=== PATIENT | male | born 1940 | race Caucasian/White ===

== ENCOUNTER 2017-01-11 11:04 | Emergency (ER) | payer OTHER ==
[~2017-01-11] VITALS: Ht 165.1 cm; Wt 74.8 kg
[~2017-01-11 11:04] MED LIST: AMLO2.5T PO; ASPI81 PO; CLOP75 PO; SIMV20TA PO; VENTAER INH
[2017-01-11 11:28] VITALS: BP 167/89; PULSE 78; RESP 16; TEMP 97.9; O2SAT 97
[2017-01-11] MEDS ORDERED: AMLO2.5T PO (11:48)
[2017-01-11] MEDS ORDERED: ALEN1TAB48 PO (11:48)
[2017-01-11] MEDS ORDERED: SIMV20TA PO (11:48)
[2017-01-11] MEDS ORDERED: ASPI81CH37 CHEW (11:48)
[2017-01-11] MEDS ORDERED: PLAV75TA29 PO (11:48)
[2017-01-11] MEDS ORDERED: ZEGE20CA4 PO (11:48)
[2017-01-11] MEDS ORDERED: ONDANSETRON HCL 4 MG/2 ML VIAL IVP ONE (12:00)
[2017-01-11] MEDS ORDERED: LORazepam 2 MG/ML VIAL IV PUSH ONE (12:00)
[2017-01-11] MEDS ORDERED: SODIUM CHLORIDE 0.9% FLUSH 10 ML FLUSH IVF PRN (12:00)
--- NOTE | 2017-01-11 12:07 | PD ---
HPI Chief Complaint: Dizziness Time Seen by Provider: 11:37 Travel History International Travel<30 days: No Contact w/Intl Traveler<30days: No Traveled to known affect area: No History of Present Illness HPI Is a 76-year-old male who presents to the emergency department complaining of vertigo and dizziness vomiting and some visual changes. States symptoms started when he woke up yesterday morning. The been severe since. He describes severe vertigo symptoms, and visual changes that he describes as objects sort of fluttering or moving it as so you are flipping a, bulk or flipped bulk. Denies any scotoma, or overt blurry vision or other visual changes. He is also started getting severe tinnitus, as well as some pain in the back of the head, and some slight left ear pain that improved. He otherwise had been feeling generally well and healthy prior to this. His never had previous similar symptoms. His a history of hypertension as well as peripheral arterial disease with previous stenting in his legs, but no history of heart disease or cerebrovascular disease. History Past Medical History Narrative Medical Hypertension PAD Tetanus Vaccination: > 5 Years Influenza Vaccination: Yes PNEUMOCCOCAL Vaccine (Year): 2008 Social History Alcohol Use: No Tobacco Use: Yes (08/10 PPD) Allergies-Medications (Allergen,Severity, Reaction): Coded Allergies: Ibuprofen (Verified Allergy, Severe, Hives, 01/11/17) Reported Meds & Prescriptions Reported Meds & Active Scripts Active Reported Alendronate (Alendronate Sodium) 70 Mg Tab 70 Mg PO Q7D Aspirin Low Dose (Aspirin) 81 Mg Chew 81 Mg CHEW DAILY Zegerid (Omeprazole-Sodium Bicarbonate) 20-1,100 Mg Cap 1 Cap PO DAILY Simvastatin 20 Mg Tab 20 Mg PO DAILY Amlodipine (Amlodipine Besylate) 2.5 Mg Tab 2.5 Mg PO DAILY Plavix (Clopidogrel Bisulfate) 75 Mg Tab 75 Mg PO DAILY Review of Systems Except as stated in HPI: all other systems reviewed are Neg Physical Exam Narrative GENERAL: 76-year-old man, appears uncomfortable, intermittent vomiting, keeps his eyes closed. SKIN: Focused skin assessment warm/dry. HEAD: Atraumatic. Normocephalic. EYES: Pupils equal and round. No scleral icterus. No injection or drainage. ENT: No nasal bleeding or discharge. Mucous membranes pink and moist. NECK: Trachea midline. No JVD. CARDIOVASCULAR: Regular rate and rhythm. No murmur appreciated. RESPIRATORY: No accessory muscle use. Clear to auscultation. Breath sounds equal bilaterally. GASTROINTESTINAL: Abdomen soft, non-tender, nondistended. Hepatic and splenic margins not palpable. MUSCULOSKELETAL: No obvious deformities. No clubbing. No cyanosis. No edema. NEUROLOGICAL: Awake and alert. No obvious facial asymmetry. EOMs are full. Visual lyles are full. He does have some spontaneous nystagmus, mostly right beating. No vertical skewed deviation. Head impulse test appears fairly normal despite spontaneous nystagmus. Normal finger to nose. Normal heel-to- culver. Normal exam is otherwise grossly normal. Data Data Last Documented VS Vital Signs Date Time Temp Pulse Resp B/P Pulse Ox O2 Delivery O2 Flow Rate FiO2 01/11/17 12:50 66 16 174/91 99 Room Air 01/11/17 11:28 97.9 Orders Complete Blood Count With Diff (01/11/17 11:49) Comprehensive Metabolic Panel (01/11/17 11:49) Iv Access Insert/Monitor (01/11/17 11:49) Ondansetron Inj (Zofran Inj) (01/11/17 12:00) Sodium Chloride 0.9% Flush (Ns Flush) (01/11/17 12:00) Lorazepam Inj (Ativan Inj) (01/11/17 12:00) Mri Brain W/O Contrast (01/11/17 ) Labs Laboratory Tests Test 01/11/17 12:00 White Blood Count 9.1 TH/MM3 Red Blood Count 5.07 MIL/MM3 Hemoglobin 14.9 GM/DL Hematocrit 44.2 % Mean Corpuscular Volume 87.3 FL Mean Corpuscular Hemoglobin 29.4 PG Mean Corpuscular Hemoglobin 33.7 % Concent Red Cell Distribution Width 12.5 % Platelet Count 264 TH/MM3 Mean Platelet Volume 6.8 FL Neutrophils (%) (Auto) 66.7 % Lymphocytes (%) (Auto) 21.7 % Monocytes (%) (Auto) 10.2 % Eosinophils (%) (Auto) 1.0 % Basophils (%) (Auto) 0.4 % Neutrophils # (Auto) 6.1 TH/MM3 Lymphocytes # (Auto) 2.0 TH/MM3 Monocytes # (Auto) 0.9 TH/MM3 Eosinophils # (Auto) 0.1 TH/MM3 Basophils # (Auto) 0.0 TH/MM3 CBC Comment DIFF FINAL Differential Comment Sodium Level 141 MEQ/L Potassium Level 4.0 MEQ/L Chloride Level 106 MEQ/L Carbon Dioxide Level 27.5 MEQ/L Anion Gap 8 MEQ/L Blood Urea Nitrogen 20 MG/DL Creatinine 0.88 MG/DL Estimat Glomerular Filtration 85 ML/MIN Rate Random Glucose 107 MG/DL Calcium Level 9.7 MG/DL Total Bilirubin 0.5 MG/DL Aspartate Amino Transf 13 U/L (AST/SGOT) Alanine Aminotransferase 18 U/L (ALT/SGPT) Alkaline Phosphatase 71 U/L Total Protein 7.1 GM/DL Albumin 3.8 GM/DL [facility] Medical Decision Making Medical Screen Exam Complete: Yes Emergency Medical Condition: Yes Interpretation(s) LABS: CBC is unremarkable. CMP is unremarkable. MRI: No acute intracranial abnormality. Extensive chronic small vessel ischemic change with whole area degeneration involving the isabel. Differential Diagnosis Vestibular neuritis, acoustic neuritis, vestibular migraine, CVA, vertebrobasilar insufficiency, other Narrative Course medical decision making INITIAL: 76 old male with acute vestibular syndrome starting yesterday. Visual changes seem to be related to his spontaneous nystagmus. He has tinnitus as well that would suggest acoustic neuritis. He has a history of vascular disease , and has a normal headache impulse test suggesting central lesion. We'll check MRI of the brain to rule out stroke. Reassess. Diagnosis Primary Impression: Acoustic neuritis Additional Instructions: Take prednisone as prescribed. Take meclizine as needed for vertigo for the first 2-3 days only. Follow-up with her primary doctor in the next 2-4 days. Return to the emergency department for any new or worsening symptoms. Med/Other Pt SpecificInfo: Prescription(s) given Scripts Meclizine 25 Mg Tab25 Mg PO TID PRN (VERTIGO) #6 TAB Prov:Pramod Delgado MD 01/11/17 Prednisone 10 Mg Tab10 Mg PO DIRECTED #70 TAB 60 mg daily on days one through five, 40 mg on day six, 30 mg on day seven, 20 mg on day eight, 10 mg on day nine, and 5 mg on day 10. Prov:Pramod Delgado MD 01/11/17 Disposition: 01 DISCHARGE HOME Condition: Stable Pramod Delgado MD Jan 11, 2017 12:07
[2017-01-11 12:10] LABS: AUTOMATED NEUTROPHIL # 6.1 TH/MM3 (1.8-7.7); BASOPHIL % 0.4 % (0.0-2.0); EOSINOPHIL # 0.1 TH/MM3 (0-0.4); HEMATOCRIT 44.2 % (39.0-51.0); HEMO FLAGS DIFF FINAL; LYMPH % 21.7 % (9.0-44.0); MEAN CELL VOLUME 87.3 FL (80.0-100.0); MEAN CORPUSCULAR HEMOGLOBIN 29.4 PG (27.0-34.0); MEAN CORPUSCULAR HGB CONC 33.7 % (32.0-36.0); MONO % 10.2 % (0.0-8.0); NEUT % 66.7 % (16.0-70.0); PLATELET COUNT 264 TH/MM3 (150-450); RED BLOOD COUNT 5.07 MIL/MM3 (4.50-5.90); RED CELL DISTRIBUTION WIDTH 12.5 % (11.6-17.2); WHITE BLOOD COUNT 9.1 TH/MM3 (4.0-11.0)
[2017-01-11 12:17] LABS: CHLORIDE 106 MEQ/L (98-107); SODIUM (NA) 141 MEQ/L (136-145)
[2017-01-11 12:21] LABS: ANION GAP 8 MEQ/L (5-15); BICARBONATE 27.5 MEQ/L (21.0-32.0); BLOOD UREA NITROGEN 20 MG/DL (7-18)
[2017-01-11 12:24] LABS: ALT (GPT) 18 U/L (12-78); AST (GOT) 13 U/L (15-37); GLOMERULAR FILTRATION RATE 85 ML/MIN (>89)
[2017-01-11 12:25] LABS: TOTAL BILIRUBIN ADULT 0.5 MG/DL (0.2-1.0)
[2017-01-11 12:26] LABS: ALKALINE PHOSPHATASE 71 U/L (45-117)
[2017-01-11 12:50] VITALS: BP 174/91; PULSE 66; RESP 16; O2SAT 99
--- NOTE | 2017-01-11 13:24 | RADHPO ---
EXAM DATE/TIME: 01/11/2017 12:25 [facility] COMPARISON: No previous studies available for comparison. INDICATIONS : CVA. Vertiago. MEDICAL HISTORY : Hypertension. SURGICAL HISTORY : Two stents in groin area in 2012. ENCOUNTER: Initial ACUITY: 2 day PAIN SCORE: 4/10 LOCATION: Bilateral cranial TECHNIQUE: Multiplanar, multisequence MRI of the brain was performed without contrast. FINDINGS: CEREBRUM: The ventricles are normal for age. No evidence of midline shift, mass lesion, hemorrhage or acute in farction. No extraaxial fluid collections are seen. The pituitary gland and suprasellar cistern are normal in configuration. WHITE MATTER: Extensive high flair signal abnormality involving the periventricular white matter both cerebral reymundo spheres. This is confluent and symmetrical. The associated signal abnormality within the isabel central ly. POSTERIOR FOSSA: The cerebellum and brainstem are intact. The 4th ventricle is midline. The cerebellopontine angle is unremarkable. The cerebellar tonsils are normal in position. DIFFUSION IMAGING: No focal areas of restricted diffusion are seen. No evidence of acute infarction. EXTRACRANIAL: The visualized portions of the orbits and paranasal sinuses are unremarkable. CONCLUSION: 1. No acute intracranial abnormality. 2. Extensive chronic small vessel ischemic change with Wallerian degeneration involving the isabel. Fito Gutiérrez Jr., MD on January 11, 2017 at 12:59 Board Certified Radiologist. This report was verified electronically.
[2017-01-11] MEDS ORDERED: PRED10 PO (13:43)
[2017-01-11] MEDS ORDERED: MECL-62 PO (13:43)
== END 2017-01-11 13:55 | disposition home or self-care (01) ==
LOC: PHED 11:04
DX: H93.3X9 Disorders of unspecified acoustic nerve (principal); H55.00 Unspecified nystagmus; I10 Essential (primary) hypertension; I73.9 Peripheral vascular disease, unspecified
CPT/HCPCS: 70551; 80053; 85025; 96374; 96375; 99285; J2060; J2405

== ENCOUNTER 2017-02-18 16:31 | Emergency (ER) | payer OTHER ==
[~2017-02-18] VITALS: Ht 167.6 cm; Wt 74.0 kg
[~2017-02-18 16:31] MED LIST changes: +ALEN1TAB48 PO; -ASPI81 PO; +ASPI81CH37 CHEW; -CLOP75 PO; +MECL-62 PO; +PLAV75TA29 PO; +PRED10 PO; -VENTAER INH; +ZEGE20CA4 PO
[2017-02-18 16:50] VITALS: BP 157/92; PULSE 80; RESP 14; TEMP 98.3; O2SAT 98
[2017-02-18] MEDS ORDERED: MORPHINE SULFATE 4 MG/ML INJ IV PUSH ONE ×2 (17:15→18:15)
[2017-02-18] MEDS ORDERED: ONDANSETRON HCL 4 MG/2 ML VIAL IV PUSH ONE (17:15)
--- NOTE | 2017-02-18 17:35 | PD ---
HPI Chief Complaint: BACK PAIN Time Seen by Provider: 17:29 Travel History International Travel<30 days: No Contact w/Intl Traveler<30days: No Traveled to known affect area: No History of Present Illness HPI 77 -year-old male here for evaluation of right-sided back pain on the mid thoracic area. Per patient he has no history of injury. He denies any recent falls but states that the pain started about 2 days ago. Per patient she was working on his car and he did not do any heavy lifting or movement and started having the pain since. Per patient pain severe. He took some Lortab with some relief. He states that the pain is mainly on the right side of the back. Does not radiate. No rashes or trauma. He also states that he's been feeling somewhat short of breath for the past couple days as well. No chest pain. No abdominal pain. She does have a history of stents placed on his arteries on the lower legs. Plavix. No injuries or falls. No fevers chills or sweats. No cough or runny nose. Patient states that he did have a previous injury on his back which he needed surgery but he is unsure as to where it was. Allergy to ibuprofen. Pain worse with movement deep breaths. PFSH Past Medical History Hx Anticoagulant Therapy: Yes (plavix) Cardiovascular Problems: Yes (htn on meds, stents placed in bilat groin) High Cholesterol: Yes Coronary Artery Disease: Yes Diabetes: No Diminished Hearing: No Hypertension: Yes PNEUMOCCOCAL Vaccine (Year): 2008 Past Surgical History Coronary Stent: Yes (2 FEMORAL STENTS) Social History Alcohol Use: No Tobacco Use: Yes (1/2 PPD) Substance Use: No Allergies-Medications (Allergen,Severity, Reaction): Coded Allergies: Ibuprofen (Verified Allergy, Severe, Hives, 02/18/17) Reported Meds & Prescriptions Reported Meds & Active Scripts Active Percocet (Oxycodone-Acetaminophen) 5-325 mg Tab 1 Tab PO Q6H PRN Reported Alendronate (Alendronate Sodium) 70 Mg Tab 70 Mg PO Q7D Aspirin Low Dose (Aspirin) 81 Mg Chew 81 Mg CHEW DAILY Zegerid (Omeprazole-Sodium Bicarbonate) 20-1,100 Mg Cap 1 Cap PO DAILY Simvastatin 20 Mg Tab 20 Mg PO DAILY Amlodipine (Amlodipine Besylate) 2.5 Mg Tab 2.5 Mg PO DAILY Plavix (Clopidogrel Bisulfate) 75 Mg Tab 75 Mg PO DAILY Review of Systems Except as stated in HPI: all other systems reviewed are Neg Physical Exam Narrative GENERAL: SKIN: Warm and dry. HEAD: Atraumatic. Normocephalic. EYES: Pupils equal and round. No scleral icterus. No injection or drainage. ENT: No nasal bleeding or discharge. Mucous membranes pink and moist. Tongue is midline. No uvula deviation. NECK: Trachea midline. No JVD. CARDIOVASCULAR: Regular rate and rhythm. No murmurs, S3, S4. RESPIRATORY: No accessory muscle use. Clear to auscultation. Breath sounds equal bilaterally. GASTROINTESTINAL: Abdomen soft, non-tender, nondistended. Hepatic and splenic margins not palpable. MUSCULOSKELETAL: Extremities without clubbing, cyanosis, or edema. No obvious deformities. Full range of motion of the upper and lower extremities bilaterally. 2+ pulses bilaterally. Patient does have reproducible pain on the mid right thoracic area. No obvious lumbar, thoracic, cervical spine tenderness to palpation noted. Pain reproducible with movements. Straight leg test negative bilaterally. Full range of motion lower extremities bilaterally. NEUROLOGICAL: Awake and alert. No obvious cranial nerve deficits. Motor grossly within normal limits. Five out of 5 muscle strength in the arms and legs. Normal speech. PSYCHIATRIC: Appropriate mood and affect; insight and judgment normal. Data Data Last Documented VS Vital Signs Date Time Temp Pulse Resp B/P Pulse Ox O2 Delivery O2 Flow Rate FiO2 02/18/17 17:54 87 16 02/18/17 17:49 97 02/18/17 16:50 98.3 157/92 Room Air Orders Electrocardiogram (02/18/17 17:) Complete Blood Count With Diff (02/18/17 17:11) Comprehensive Metabolic Panel (02/18/17 17:11) Prothrombin Time / Inr (Pt) (02/18/17 17:11) Act Partial Throm Time (Ptt) (02/18/17:11) Magnesium (Mg) (02/18/17 17:11) Chest, Single Ap (02/18/17 17:11) Iv Access Insert/Monitor (02/18/17 17:11) Ecg Monitoring (02/18/17 17:) Oximetry (02/18/17 17:11) B-Type Natriuretic Peptide (02/18/17 17:11) Troponin I (7/13/17 17:11) Spine, Thoracic-Ap/Lat/Sw(3vw) (02/18/17 ) Morphine Inj (Morphine Inj) (02/18/17 17:15) Ondansetron Inj (Zofran Inj) (02/18/17 17:15) Morphine Inj (Morphine Inj) (02/18/17 18:00) Morphine Inj (Morphine Inj) (02/18/17 18:15) Labs Laboratory Tests Test 02/18/17 17:49 White Blood Count 8.8 TH/MM3 Red Blood Count 5.11 MIL/MM3 Hemoglobin 15.3 GM/DL Hematocrit 44.7 % Mean Corpuscular Volume 87.3 FL Mean Corpuscular Hemoglobin 29.8 PG Mean Corpuscular Hemoglobin 34.2 % Concent Red Cell Distribution Width 13.0 % Platelet Count 268 TH/MM3 Mean Platelet Volume 6.8 FL Neutrophils (%) (Auto) 71.7 % Lymphocytes (%) (Auto) 18.0 % Monocytes (%) (Auto) 8.5 % Eosinophils (%) (Auto) 0.7 % Basophils (%) (Auto) 1.1 % Neutrophils # (Auto) 6.2 TH/MM3 Lymphocytes # (Auto) 1.6 TH/MM3 Monocytes # (Auto) 0.8 TH/MM3 Eosinophils # (Auto) 0.1 TH/MM3 Basophils # (Auto) 0.1 TH/MM3 CBC Comment DIFF FINAL Differential Comment Prothrombin Time 10.7 SEC Prothromb Time International 1.0 RATIO Ratio Activated Partial 31.9 SEC Thromboplast Time Sodium Level 141 MEQ/L Potassium Level 3.9 MEQ/L Chloride Level 105 MEQ/L Carbon Dioxide Level 29.1 MEQ/L Anion Gap 7 MEQ/L Blood Urea Nitrogen 18 MG/DL Creatinine 1.00 MG/DL Estimat Glomerular Filtration 73 ML/MIN Rate Random Glucose 103 MG/DL Calcium Level 8.8 MG/DL Magnesium Level 1.8 MG/DL Total Bilirubin 0.8 MG/DL Aspartate Amino Transf 15 U/L (AST/SGOT) Alanine Aminotransferase 18 U/L (ALT/SGPT) Alkaline Phosphatase 74 U/L Troponin I LESS THAN 0.02 NG/ML B-Type Natriuretic Peptide 46 PG/ML Total Protein 7.3 GM/DL Albumin 3.6 GM/DL [facility] Medical Decision Making Medical Screen Exam Complete: Yes Emergency Medical Condition: Yes Medical Record Reviewed: Yes Interpretation(s) Last Impressions Chest X-Ray 02/18/17 1711 Signed Impressions: Service Date/Time: , February 18, 2017 17:18 - CONCLUSION: Normal examination. Fito Gutiérrez Jr., MD Thoracic Spine X-Ray 02/18/17 0000 Signed Impressions: Service Date/Time: , February 18, 2017 17:21 - CONCLUSION: Prior vertebroplasty and mild wedging of numerous vertebrae most likely osteoporotic , however indeterminant. Nell Perez MD EKG shows sinus rhythm with no sign of acute ischemia or arrhythmia with by me and attending. Troponin and CK-MB negative. LFTs within normal limits. CBC & BMP Diagram 02/18/17 17:49 Differential Diagnosis Fracture versus sprain versus strain versus muscle spasm versus rib contusion versus mass versus abdominal etiology versus pneumonia versus ACS less likely Narrative Course 77-year-old male that presents to the ED for evaluation of right thoracic pain. Patient was properly examined and was found to have signs and symptoms of unclear etiology. Appears to be muscular in nature the patient denies injury. She does have a history of heart disease. Per recommendation of this stems from last and imaging. Labs and imaging showed no sign of acute disease. Patient does have 2 pulses and what appears to be old postoperative changes to the back. Likely what exacerbated his pain. No sign of acute new fracture. Patient's pain is reproducible with touch as well as with movement. This is likely muscle scale. We'll treat with pain medication as patient cannot take ibuprofen. I recommend ice or warm compresses. No heavy lifting. Close follow with his orthopedic surgeon Dr. Fernandez. See ED for any worsening symptoms. Diagnosis Primary Impression: Upper back strain Qualified Code: S29.012A - Upper back strain, initial encounter Patient Instructions: General Instructions, Narcotic given in the ED Departure Forms: Tests/Procedures, Work Release Enter return to work date: Feb 23, 2017 Additional Instructions: Take medications as prescribed. Follow-up with PCP. See ED for any worsening symptoms. Do not drink or drive while taking pain medication. Apply ice or heat as needed for pain Med/Other Pt SpecificInfo: Prescription(s) given Scripts Oxycodone-Acetaminophen (Percocet)5-325 mg Tab1 Tab PO Q6H PRN (PAIN) #15 TAB Ref 0 Prov:Donald Ruiz MD 02/18/17 Disposition: 01 DISCHARGE HOME Condition: Diallo Song Feb 18, 2017 17:35
[2017-02-18 17:49] VITALS: O2SAT 97
--- NOTE | 2017-02-18 17:57 | RADRPT ---
EXAM DATE/TIME: 02/18/2017 17:21 [facility] COMPARISON: SPINE THORACOLUMBAR (AP&LAT), June 22, 2013, 9:20. INDICATIONS : Mid-right side back pain after working on a car. MEDICAL HISTORY : Hypertension. SURGICAL HISTORY : Kyphoplasty, thoracic spine. ENCOUNTER: Initial ACUITY: 2 days PAIN SCORE: 10/10 LOCATION: thoracic spine. FINDINGS: There is no change in wedging of midthoracic vertebrae with vertebroplasty. There is slight wedging o f multiple vertebrae probably osteoporotic. There is diffuse osteopenia and moderate degenerative katie nge particularly involving the lower thoracic lumbar spine junction. There are atherosclerotic calcif ications of the aorta due to chronic atherosclerotic disease. CONCLUSION: Prior vertebroplasty and mild wedging of numerous vertebrae most likely osteoporotic, however simone Perez MD on February 18, 2017 at 17:53 Board Certified Radiologist. This report was verified electronically.
--- NOTE | 2017-02-18 17:58 | RADRPT ---
EXAM DATE/TIME: 02/18/2017 17:18 [facility] COMPARISON: No previous studies available for comparison. INDICATIONS : Chest pain and mid-right side back pain after working on a car. MEDICAL HISTORY : Hypertension. SURGICAL HISTORY : Kyphoplasty, thoracic spine. ENCOUNTER: Initial ACUITY: 2 days PAIN SCORE: 4/10 LOCATION: Bilateral chest FINDINGS: A single view of the chest demonstrates the lungs to be symmetrically aerated without evidence of mas s, infiltrate or effusion. The cardiomediastinal contours are unremarkable. Osseous structures are intact. CONCLUSION: Normal examination. Fito Gutiérrez Jr., MD on February 18, 2017 at 17:55 Board Certified Radiologist. This report was verified electronically.
[2017-02-18] MEDS ORDERED: MORPHINE SULFATE 8 MG/ML INJ IV PUSH ONE (18:00)
[2017-02-18 18:05] LABS: AUTOMATED NEUTROPHIL # 6.2 TH/MM3 (1.8-7.7); BASOPHIL # 0.1 TH/MM3 (0-0.2); BASOPHIL % 1.1 % (0.0-2.0); EOSINOPHIL # 0.1 TH/MM3 (0-0.4); EOSINOPHIL % 0.7 % (0.0-4.0); HEMATOCRIT 44.7 % (39.0-51.0); HEMO FLAGS DIFF FINAL; LYMPHOCYTE # 1.6 TH/MM3 (1.0-4.8); MEAN CELL VOLUME 87.3 FL (80.0-100.0); MEAN CORPUSCULAR HEMOGLOBIN 29.8 PG (27.0-34.0); MEAN CORPUSCULAR HGB CONC 34.2 % (32.0-36.0); MONO % 8.5 % (0.0-8.0); NEUT % 71.7 % (16.0-70.0); PLATELET COUNT 268 TH/MM3 (150-450); RED BLOOD COUNT 5.11 MIL/MM3 (4.50-5.90); WHITE BLOOD COUNT 8.8 TH/MM3 (4.0-11.0)
[2017-02-18 18:14] LABS: CHLORIDE 105 MEQ/L (98-107); POTASSIUM 3.9 MEQ/L (3.5-5.1); SODIUM (NA) 141 MEQ/L (136-145)
[2017-02-18 18:18] LABS: ANION GAP 7 MEQ/L (5-15); BICARBONATE 29.1 MEQ/L (21.0-32.0); BLOOD UREA NITROGEN 18 MG/DL (7-18); MAGNESIUM 1.8 MG/DL (1.5-2.5)
[2017-02-18 18:20] LABS: APTT (PATIENT) 31.9 SEC (24.3-30.1); PROTHROMBIN TIME - PATIENT 10.7 SEC (9.8-11.6)
[2017-02-18 18:21] LABS: ALT (GPT) 18 U/L (12-78); AST (GOT) 15 U/L (15-37); GLOMERULAR FILTRATION RATE 73 ML/MIN (>89)
[2017-02-18 18:22] LABS: TOTAL BILIRUBIN ADULT 0.8 MG/DL (0.2-1.0)
[2017-02-18 18:24] LABS: ALKALINE PHOSPHATASE 74 U/L (45-117)
[2017-02-18] MEDS ORDERED: PERC5TAB12 PO (18:44)
[2017-02-18 19:11] VITALS: BP 170/86; PULSE 74; RESP 16; O2SAT 95
--- NOTE | 2017-02-20 11:04 | EKG ---
Date Performed: 02/18/2017 Time Performed: 17:39:06 PTAGE: 77 years EKG: Sinus rhythm WITH OCCASIONAL SUPRAVENTRICULAR PREMATURE COMPLEXES MARKED LEFT AXIS DEVIATION RIGHT BUNDLE BRANCH BLOCK MINIMAL VOLTAGE CRITERIA FOR LVH, CONSIDER NORMAL VARIANT ABNORMAL ECG PREVIOUS TRACING : 01/13/2011 08.28 DOCTOR: Pramod Rivas Interpretating Date/Time 02/20/2017 10:57:07
== END 2017-02-18 19:13 | disposition home or self-care (01) ==
LOC: PHED 16:31 → PHEFT 19:13
DX: S29.012A Strain of muscle and tendon of back wall of thorax, initial encounter (principal); R06.02 Shortness of breath; F17.200 Nicotine dependence, unspecified, uncomplicated; I25.10 Atherosclerotic heart disease of native coronary artery without angina pectoris; I10 Essential (primary) hypertension; X50.9XXA Other and unspecified overexertion or strenuous movements or postures, initial encounter; Y93.89 Activity, other specified; Z79.02 Long term (current) use of antithrombotics/antiplatelets; Z79.82 Long term (current) use of aspirin; Z79.899 Other long term (current) drug therapy
CPT/HCPCS: 71010; 72072; 80053; 83735; 83880; 84484; 85025; 85610; 85730; 93005; 96374; 96375; 99285; J2270; J2405

== ENCOUNTER → 2017-07-13 | Day surgery (SDC) | payer OTHER ==
[~2017-07-13] MED LIST changes: -ASPI81CH37 CHEW; +ASPI81CH6 CHEW; +BUPIVACAINE/EPINEPHRINE 0.5% 50 ML VIAL ONE; +BUPIVACAINE/EPINEPHRINE 0.5% PF 10 ML VIAL ONE; +LACTATED RINGER'S 1000 ML INJ 1,000 ML ONE; +LIDOCAINE 1%/EPINEPHrine 1:100,000 SOLN 50 ML VIAL ONE; +LIDOCAINE 1.5%/EPINEPHrine 1:200,000 PF SOLN 30 ML AMP ONE; -MECL-62 PO; +MIDAZOLAM HCL 2 MG/2 ML VIAL ONE; +ONDANSETRON HCL 4 MG/2 ML VIAL IV PUSH ONE; +PERC5TAB12 PO; -PRED10 PO; +PROPOFOL 500 MG/50 ML BTL IV ONE; +ceFAZolin 2 GM PREMIX 50 ML ONE
--- NOTE | 2017-07-13 12:33 | MP ---
cc: BRYANT GARCIA MD DATE OF SURGERY July 13, 2017 PREOPERATIVE DIAGNOSIS T6 and T7 compression fractures. POSTOPERATIVE DIAGNOSIS T6 and T7 compression fractures. PROCEDURE T6 and T7 kyphoplasty. SURGEON Dr. Bryant Garcia ANESTHESIA TIVA. ESTIMATED BLOOD LOSS Minimal. INDICATIONS FOR PROCEDURE The patient is a 77-year-old male who presents with a several-month history of debilitating back pain. The patient was found to have a compression fracture at T6 and T7 which appeared to be nonhealing. Options of management to include continued nonoperative management versus operative intervention in the form of kyphoplasty were discussed with the patient. The risks of surgery including but not limited to infection, neurologic injury, persistent back pain, adjacent level compression fractures, extravasation of cement were all discussed with the patient and he did consent to the above-mentioned procedure. DESCRIPTION OF PROCEDURE The patient was brought to the operating room and given limited sedation. The patient was carefully rolled to a prone position on a radiolucent table. All pressure points were protected and the back was scrubbed with alcohol, followed by Hibiclens, followed by Chloraprep. The back was then draped sterilely. Antibiotics given with an hour of incision. A time-out was performed. AP and lateral fluoroscopic images were used to identify the proper levels, T6 and T7. This was compared to preoperative studies. Skin markings were made and local anesthetic was then utilized with a combination of 1.5% lidocaine plain and 0.25% Marcaine with epinephrine. A double-balloon approach was utilized from the left side first. A small awl was placed through the subcutaneous tissue, through the pedicle and into the vertebral body at an oblique angle. This was followed by placement of a balloon. The balloon was elevated. This process was then repeated from the right side. T6 was then approached from a single balloon technique from the left side. A small awl was placed through the subcutaneous tissue, through the pedicle and into the vertebral body at an oblique angle crossing midline. This was followed by placement of the balloon and the balloon was elevated. On the back table methyl methacrylate was mixed. After approximately 12 minutes, the cement was injected into T7. This was followed by cement being placed in T6. Once the cement had hardened the tubes were removed. AP and lateral fluoroscopic images verified appropriate position of cement. The wound was irrigated and anesthetized and closed with a 4-0 Vicryl followed by Dermabond. Intraoperative x-rays were taken. The patient was awakened and taken to the recovery room in satisfactory condition. FINDINGS Acute T7 compression fracture with minimal mormonism of height. Acute T6 compression fracture with minimal loss of height and adequate fill of cement. MD CAROL Rivero/ALLEN /9:02 AM /12:15 PM
== END | disposition home or self-care (01) ==
LOC: ESDC 06:41
PROVIDERS: ATTEND Orthopaedic Surgery Orthopaedic Surgery of the Spine
DX: S22.050A Wedge compression fracture of T5-T6 vertebra, initial encounter for closed fracture (principal); S22.060A Wedge compression fracture of T7-T8 vertebra, initial encounter for closed fracture
CPT/HCPCS: 01936; 22513; 22515; 72070; J0690; J2250; J2405; J3010; J7120